=== PATIENT | male | born 1995 | race Caucasian/White ===

== ENCOUNTER 2021-08-21 18:53 | Inpatient (IN) | payer SELFPAY ==
[2021-08-21] VITALS (34 sets, daily range): BP systolic 80–127; BP diastolic 57–106; PULSE 87–110; RESP 15–44; TEMP 36.2–37.3; O2SAT 84–99; BMI 20.6; BMI 20.7
--- NOTE | ~2021-08-21 | CT_ITS ---
EXAMINATION: CT brain wo con INDICATION: Altered mental status COMPARISON: 06/17/2009 TECHNIQUE: Standard unenhanced head CT. The dose-length product (DLP) was 605.33 mGy-cm. The mA was a djusted according to patient size. Iterative reconstruction technique was employed. FINDINGS: There is no intracranial hemorrhage, acute infarction, or abnormal mass lesion. The ventric les are normal. There is no abnormal mass effect or midline shift. The gee-white matter differentiat ion is normal. The basal cisterns are patent. The orbits are normal. There is complete opacification of the left sphenoid sinus and near complete opacification of the right sphenoid sinus. IMPRESSION: 1. No acute intracranial abnormality. 2. Sinus disease. Reviewed, dictated and finalized at location F. ET WORKER
--- NOTE | ~2021-08-21 | XR_ITS ---
EXAMINATION: XR chest 2V DATE: 08/21/2021 20:28 INDICATION: Shortness of breath TECHNIQUE: PA and lateral views of the chest are obtained. COMPARISON: None available FINDINGS: There are patchy airspace opacities throughout the right lung. There is no pleural effusion or pneumothorax. The cardiomediastinal silhouette is normal. The visualized bones and soft tissues a re unremarkable. Mild pneumomediastinum is noted. IMPRESSION: 1. Diffuse airspace opacities of the right lung, consistent with pneumonia. 2. Mild pneumomediastinum, likely due to coughing. Reviewed, dictated and finalized at location F. DING AND SPRAYING SUPERVISOR
--- NOTE | ~2021-08-21 | XR_ITS ---
EXAMINATION: XR chest 1V portable DATE: 08/23/2021 05:52 INDICATION: Aspiration. Pneumomediastinum. TECHNIQUE: A single frontal view of the chest was obtained. COMPARISON: Chest single view 08/22/2021 FINDINGS: There are airspace opacities in all right lung zones and left perihilar region. No pleural effusion or pneumothorax. The heart size is normal. Again seen is pneumomediastinum. IMPRESSION: 1. Airspace opacities in right lung and left perihilar region with worsening on the left, consistent with pneumonia. 2. Pneumomediastinum again seen. Reviewed, dictated and finalized at location A. ANT PUFF MAKER
--- NOTE | ~2021-08-21 | XR_ITS ---
EXAMINATION: XR chest 1V portable DATE: 08/22/2021 07:49 INDICATION: Pneumomediastinum. Pneumonia. TECHNIQUE: A single frontal view of the chest was obtained. COMPARISON: Chest 2 views 08/21/2021, chest CT 08/21/2021 FINDINGS: There are airspace opacities in all right lung zones. No pleural effusion or pneumothorax. The heart size is normal. Pneumomediastinum and gas in the neck soft tissues are again seen. IMPRESSION: 1. Diffuse right lung disease with worsening in right midlung zone, consistent with pneumonia. 2. Pneumomediastinum again seen. Reviewed, dictated and finalized at location A. REPAIR MECHANIC
--- NOTE | ~2021-08-21 | XR_ITS ---
EXAMINATION: XR chest 2V DATE: 08/26/2021 09:34 INDICATION: Pneumonia. Pleural effusion. TECHNIQUE: PA and lateral views of the chest were obtained. COMPARISON: Chest radiograph dated 08/25/2021 FINDINGS: Interval decrease in the airspace opacities in the right mid and lower lung zones consistent with imp roving pneumonia. Left lung remains clear. No pleural effusion or pneumothorax. The cardiomediastinal silhouette is normal. Visualized bones and soft tissues are unremarkable. IMPRESSION: 1. Improving pneumonia in the right mid and upper lung zones Reviewed, dictated and finalized at location A. WEB DEVELOPER
--- NOTE | ~2021-08-21 | XR_ITS ---
EXAMINATION: XR chest 1V portable INDICATION: Aspiration pneumonia TECHNIQUE: Portable AP chest at 0734 hours COMPARISON: 08/23/2021 FINDINGS: Airspace opacities persist throughout the right lung with interval improvement. Previously described left perihilar opacities have also decreased. There is no pleural effusion or pneumothorax. No definite pneumomediastinum is identified. IMPRESSION: 1. Persistent but improved airspace opacities of the right lung and left perihilar region, consistent with resolving pneumonia. Reviewed, dictated and finalized at location A. RPLANT OPERATOR IMPRESSION: 1. Persistent but improved airspace opacities of the right lung and left perihi lar region, consistent with resolving pneumonia.
--- NOTE | ~2021-08-21 | CT_ITS ---
EXAMINATION: CTA chest PE protocol DATE: 08/21/2021 21:19 INDICATION: Pneumomediastinum, cough, shortness of breath TECHNIQUE: Computed tomography angiography (CTA) of the chest was performed with 100 mL Omnipaque-350 intravenous contrast timed to evaluate the pulmonary arteries. Coronal maximum intensity projection 3D-reconstructions were created by the technologist. The dose-length product (DLP) was 303.66 mGy-cm. Automated exposure control and iterative reconstruction technique were employed. COMPARISON: None. FINDINGS: The pulmonary arteries are moderately well-opacified. No pulmonary embolism is identified. There are diffuse airspace opacities throughout the right lung. Minimal airspace opacities are seen i n the left upper and lower lobes. There is pneumomediastinum tracking into the neck as well as anteri or chest wall musculature and paraspinal muscles. No pneumothorax is identified. No pathologically en larged thoracic lymph nodes are identified. The heart size is normal. IMPRESSION: 1. No pulmonary embolus identified. 2. Multifocal pneumonia, worst in the right lung. 3. Pneumomediastinum tracking into the neck, chest wall, and paraspinal muscles. Reviewed, dictated and finalized at location F. ESS COORDINATOR IMPRESSION: 1. No pulmonary embolus identified. 2. Multifocal pneumonia, worst in the right lung. 3. Pneumomediastinum tracking into the neck, chest wall, and paraspinal muscles .
--- NOTE | 2021-08-21 19:01 | ECG_ITS ---
Measurements Intervals [place] Rate: 90 P: 51 IA: 128 QRS: 82 QRSD: 84 T: 39 QT: 336 QTc: 412 Interpretive Statements SINUS RHYTHM BASELINE ARTIFACT- I, II, III, AVR NORMAL ECG Electronically Signed On 08-21-2021 20:30:04 GROUNDS KEEPER by Eben Tolentino D.O.
[2021-08-21 19:30] LABS: Hematocrit 45.4 % (42.0-52.0); Hemoglobin 15.6 g/dL (14.0-18.0); Mean Corpuscular HGB Conc 34.4 g/dl (32-36); Mean Corpuscular Hemoglobin 30.7 pg (26-34); Mean Corpuscular Volume 89.4 fl (80-100); Platelet Count Result 189 k/mm3 (150-375); Red Blood Count 5.08 M/mm3 (4.6-6.20); Red Cell Distribution Width 11.7 % (11.5-14.5); White Blood Count 27.4 K/mm3 (4.5-10.0)
[2021-08-21 19:34] LABS: Add Urine Microscopic? NO; Appearance Urine Clear (Clear); Bilirubin Urine Negative (Negative); Blood Urine Negative (Negative); Color Urine Straw (Yellow); Glucose Urine UA Negative (Negative); Ketones Urine Negative (Negative); Leukocyte Esterase Ur Negative LEU/UL (Negative); Nitrate Urine Negative (Negative); Protein Urine Negative (Negative); Specific Grav Ur 1.013 (1.001-1.035); Urobilinogen Urine Negative mg/dL (<2.0)
[2021-08-21 19:40] LABS: INR 1.6; Prothrombin Time 18.2 Seconds (11.1-14.7)
[2021-08-21 19:41] LABS: Partial Thromboplastin Time 30.5 SECONDS (22.3-36.8)
[2021-08-21 19:49] LABS: Amphetamine Screen Urine Negative (Negative); Barbiturate Screen Urine Negative (Negative); Benzodiazepines Screen Urine Negative (Negative); Cannabinoid Screen Urine Positive (Negative); Cocaine Screen Urine Negative (Negative); Methadone Screen Urine Negative (Negative); Opiate Screen Urine Negative (Negative); Phencyclidine Screen Urine Negative (Negative)
--- NOTE | 2021-08-21 19:51 | ED.GENADULT ---
HPI - General Adult General Chief complaint: Altered Mental Status Stated complaint: vomiting blood/dizzy/altered loc Time Seen by Provider: 08/21/21 18:57 History of Present Illness HPI narrative: Patient is a 25-year-old male who presents ER with multiple issues. Patient reports last night he took some drugs and he is unsure if he overdosed. He thought he might of taken Percocet but is unsure what was actually in the pill. Apparently he disappeared from the house and came back unbeknownst to his mother. Patient woke up this morning confused with no memory of the events from last night. He spoke with the therapist on the phone because he has been depressed due to a recent break-up. Throughout the day he has been having recurrent and persistent vomiting and dry heaves. Occasionally he is vomited up gross blood and emesis with streaks of blood. Denies any runny nose or sore throat. No productive cough or dyspnea. He reports that he just feels nauseous. He reports he did not take the pills in an attempt to end his own life. He has depression but no suicidal ideation. Related Data Home Medications Medication Instructions Recorded Confirmed No Home Medications 08/21/21 08/21/21 Allergies Allergy/AdvReac Type Severity Reaction Status Date / Time No Known Allergies Allergy Mild Verified 08/21/21 19:00 Review of Systems Review of Systems: All systems reviewed & are unremarkable except as noted in HPI and below Constitutional: Constitutional: Denies chills, Reports fatigue, Denies fever(s) and Denies weakness ENT: Denies nasal congestion and Denies sore throat Cardiovascular: Cardiovascular: Denies chest pain, Denies rapid heart rate and Denies radiating jaw, neck or arm pain Respiratory: Respiratory: Denies cough, Denies dyspnea and Denies wheezing Gastrointestinal: Gastrointestinal: Reports abdominal pain, Denies diarrhea, Reports nausea and Reports vomiting Neurologic: Denies headache(s), Denies focal weakness and Denies numbness PMFSH Past Medical History Medical History (Updated 08/21/21 @ 23:02 by Kai Odell MD) Healthy adult male Social History Social History (Updated 08/21/21 @ 21:00 by Kai Odell MD) Substance use type: marijuana and painkillers Exam Narrative: GENERAL: Well-appearing, well-nourished, and in no acute distress. HEAD: Normocephalic, atraumatic. EYES: PERRL and EOMI. ENT: Mucous membranes moist. Neck: Trachea midline, no palpable crepitus. CHEST: Clear to auscultation. No respiratory distress. Cough with deep breath. HEART: Regular rate and rhythm. Normal peripheral pulses. ABDOMEN: Soft, nontender, nondistended EXTREMITIES: Normal range of motion. No edema. SKIN: Warm, dry, no rash. NEURO: Alert and oriented x3. PSYCH: Normal mood and affect. Course Course Emergency Course: After ambulation to the bathroom patient had significant hypoxia into the 80s and is requiring 2 L of oxygen. Gastric lavage was performed and ruled out upper GI bleed. NG tube removed. Pneumomediastinum and pneumonia on imaging. Acute renal failure noted. Blood cultures obtained and Zosyn started. No bed availability at [facility] or [facility] and they're not accepting phone calls. Admit to hospitalist service. Patient clinically looks well but certainly has concerning his imaging and lab findings. Vital Signs Vital signs: Vital Signs Temperature 97.2 F L 08/21/21 19:01 Pulse Rate 88 08/21/21 19:01 Respiratory Rate 22 H 08/21/21 19:01 Blood Pressure 103/57 L 08/21/21 19:01 Pulse Oximetry 94 08/21/21 19:01 Temperature 97.2 F L 08/21/21 19:01 Pulse Rate 89 08/21/21 22:47 Respiratory Rate 37 H 08/21/21 22:45 Blood Pressure 105/57 L 08/21/21 22:45 Pulse Oximetry 96 08/21/21 22:47 Medical Decision Making Vital Signs Vital Signs: Vital Signs Temperature 97.2 F L 08/21/21 19:01 Pulse Rate 88 08/21/21 19:01 Respiratory Rate 22 H 0
[2021-08-21 19:57] LABS: Alanine Aminotransferase 71 U/L (4-50); Albumin Level 3.9 g/dL (3.5-5.1); Alkaline Phosphatase 60 U/L (38-126); Anion Gap 15 mmol/L (8-16); Aspartate Amino Transferase 75 U/L (17-59); Bilirubin,Total 0.6 mg/dL (0.2-1.3); Blood Urea Nitrogen 29 mg/dL (9-20); Calcium 8.4 mg/dL (8.4-10.2); Carbon Dioxide 22 mmol/L (22-30); Chloride 101 mmol/L (98-107); Estimated CRCL calculation 47 ml/min; Estimated Glomerular Filt Rate 41; Glucose 111 mg/dL (65-110); Potassium 4.3 mmol/L (3.4-5.0); Sodium 138 mmol/L (137-145)
[2021-08-21 19:58] LABS: Band Neutrophils Percent 17 % (0-6); Lymphocytes Absolute Manual 1.91 K/mm3 (1.1-4.5); Lymphocytes Percent Manual 7 % (18-44); Monocytes Absolute Manual 0.54 K/mm3 (0.1-0.90); Monocytes Percent Manual 2 % (3-9); Neutrophils Absolute Manual 24.93 K/mm3 (1.3-6.7); Neutrophils Percent Manual 74 % (46-73); Total Cells Counted 100
[2021-08-21 19:59] LABS: Platelet Estimate Adequate (Adequate)
--- NOTE | 2021-08-21 20:03 | PC.NURSE ---
no blood noted during gastric lavage
[2021-08-21 20:05] LABS: Acetaminophen < 10 ug/mL (10-30); Salicylate < 1.0 mg/dL (2-20)
[2021-08-21] MEDS: SODIUM CHLORIDE 0.9% IV 1,000 ML 999 ML IV CONT ×2 (20:35→21:32)
[2021-08-21 21:40] LABS: SARS-CoV-2 RNA PCR Negative
[2021-08-21 22:30] LABS: Alveolar/Arterial O2 Gradient 87.8 mmHg; Base Excess ABG -3.2 mEq/l (+/-2.0); Carboxyhemoglobin 0.3 % THb (0-2.0); Fractional Inspired Oxygen 28 %; HCO3 ABG 21.1 mEq/l (22.0-26.0); Methemoglobin ABG 0.3 %THb (0-1.5); Oxygen Content ABG 18.5 %vol (16.0-22.0); Oxygen Saturation ABG 93.9 % (95.0-100.0); Oxyhemoglobin 92.7 % THb (90.0-100.0); PCO2 ABG 35.8 mmHg (35.0-45.0); PO2 ABG 69.6 mmHg (80.0-100.0); PO2 FiO2 Ratio Arterial Blood 2.49 %; Reduced Hemoglobin 6.7 %THb (0-5.0); Total Hemoglobin 14.2 g/dL (12.0-18.0); pH ABG 7.388 (7.350-7.450)
[2021-08-21 22:32] LABS: Device NASAL CANNULA; Modified Allen's Test Pass; Site Drawn LEFT RADIAL
--- NOTE | 2021-08-21 23:06 | PC.NURSE ---
[facility] faxed at [phone].
--- NOTE | 2021-08-21 23:53 | PM.IMHP ---
H&P: HPI History of Present Illness Date/Time: 08/21/21 23:53 Chief Complaint: Coughing up blood, altered mental status Narrative: 25-year-old previously healthy male who was escorted to the ER by his mother via private vehicle after having altered mental status and coughing up blood. The patient had evidently left his home last night and came back IV notes to his mother. He was evidently out of the house for about 20 minutes. In the ER he admitted to taking some drugs that he thought was Percocet but at the time of my evaluation he actually stated he did not recall if he took any pills. He stated that he did not take the medications in an effort to overdose but does admit that he has been depressed the last couple of months after break-up with his girlfriend. He evidently woke up this morning confused. He evidently had recurrent vomiting and dry heaves with some blood-tinged material. The patient himself does not actually remember the nausea and vomiting. He denies any abdominal pain at this time and has had no vomiting since he arrived to the ER. He did report some nausea to the ER staff but denies nausea at the time of my evaluation. He does admit to some mild shortness of breath that is new today. He has a mild cough that is worse with deep breathing. He does report some lower rib and back pain with deep breathing. He had no recall of the events from the night before. He has been vaccinated against COVID-19. He denies any known ill contacts. He denies any suicidal or homicidal ideation. He denies any intent to hurt himself. He has been talking with a counselor on the phone due to his depressive symptoms. He reports that his depression is mild. He has used E cigarettes for 3 years. He smokes 3 marijuana joints a day. Review of Systems Review of Systems: 12 systems were reviewed with pertinent positives and negatives per HPI. Except as documented in the HPI, all other systems were reviewed and are negative. FOR[facility]LY [facility], [facility] Past Medical History Medical History (Updated 08/22/21 @ 03:20 by Denise Roblero DO) Healthy adult male Surgical History Surgical History (Updated 08/22/21 @ 03:08 by Denise Roblero DO) History of appendectomy History of left inguinal hernia repair At age 10 Family History Family History Other No significant family history Social History Social History (Updated 08/22/21 @ 03:11 by Denise Roblero DO) Social History: Patient is single and lives with his parents. He works at [employer] in the [employer] department. He drinks alcohol on occasion in in moderation about once a month. He smokes 3 joints a day. He has been smoking E cigarettes for 3 years. Tobacco type: e-cigarettes/vaping Additional smoking assessment comments: He has been vaping since 2019 Alcohol intake: current Drinks per week: 1 Substance use: current Substance use type: marijuana Spiritual care concerns: No Meds Home Medications and Allergies Home Medications Medication Instructions Recorded Confirmed Type No Home Medications 08/21/21 08/21/21 History Allergies Allergy/AdvReac Type Severity Reaction Status Date / Time No Known Allergies Allergy Verified 08/22/21 01:45 Vital Signs Vital Signs - 24 hr 08/21/21 19:01 08/21/21 19:03 08/21/21 19:15 Temperature 97.2 F L Pulse Rate 88 95 89 Respiratory Rate 22 H 32 H 42 H Blood Pressure 103/57 L 80/58 L Pulse Oximetry 94 92 92 08/21/21 19:22 08/21/21 19:23 08/21/21 19:30 Temperature Pulse Rate 92 106 H 89 Respiratory Rate 38 H 28 H 18 Blood Pressure 105/75 101/67 Pulse Oximetry 91 92 91 08/21/21 19:31 08/21/21 19:47 08/21/21 20:08 Temperature Pulse Rate 89 93 92 Respiratory Rate 42 H 38 H 28 H Blood Pressure Pulse Oximetry 90 93 08/21/21 20:15 08/21/21 20:16 08/21/21 20:18 Temperature Pulse Rate 92 94 87 Respiratory Rat
[2021-08-22] VITALS (12 sets, daily range): BP systolic 104–122; BP diastolic 50–59; PULSE 71–100; RESP 16–20; TEMP 36.6–37.7; O2SAT 95–98
[2021-08-22] MEDS: SODIUM CHLORIDE 0.9% IV 1,000 ML 125 ML IV CONT ×2 (00:27→10:13)
--- NOTE | 2021-08-22 01:01 | PC.NURSE ---
This patient, Jeff Lobo, was admitted to IMU Room 201-01. Patient/family oriented to hospital policies and general routines including ID bracelet, bed and alarms, visiting hours, pain management, procedures, bathroom and other care routines, personal items, smoking policy, room service/diet, and visiting hours. Information on how to activate the Rapid Response Team has been discussed. Patient/Family are encouraged to report perceived risks to care and to ask questions if they do not understand what they are told or what they should do.
[2021-08-22 05:19] LABS: Hematocrit 38.1 % (42.0-52.0); Hemoglobin 13.2 g/dL (14.0-18.0); Mean Corpuscular HGB Conc 34.6 g/dl (32-36); Mean Corpuscular Hemoglobin 31.1 pg (26-34); Mean Corpuscular Volume 89.6 fl (80-100); Mean Platelet Volume 11.5 fl (7.4-10.4); Platelet Count Result 156 k/mm3 (150-375); Red Blood Count 4.25 M/mm3 (4.6-6.20); White Blood Count 28.1 K/mm3 (4.5-10.0)
[2021-08-22 05:42] LABS: Alanine Aminotransferase 49 U/L (4-50); Albumin Level 3.2 g/dL (3.5-5.1); Alkaline Phosphatase 58 U/L (38-126); Anion Gap 10 mmol/L (8-16); Aspartate Amino Transferase 45 U/L (17-59); Bilirubin,Total 0.8 mg/dL (0.2-1.3); Blood Urea Nitrogen 21 mg/dL (9-20); Calcium 8.3 mg/dL (8.4-10.2); Carbon Dioxide 24 mmol/L (22-30); Chloride 104 mmol/L (98-107); Estimated CRCL calculation 64 ml/min; Estimated Glomerular Filt Rate > 60; Glucose 91 mg/dL (65-110); Potassium 4.2 mmol/L (3.4-5.0); Sodium 138 mmol/L (137-145)
[2021-08-22 06:15] LABS: Atypical Lymphocytes Present; Band Neutrophils Percent 28 % (0-6); Monocytes Absolute Manual 2.52 K/mm3 (0.1-0.90); Monocytes Percent Manual 9 % (3-9); Neutrophils Absolute Manual 24.16 K/mm3 (1.3-6.7); Neutrophils Percent Manual 58 % (46-73); Platelet Estimate Adequate (Adequate); Total Cells Counted 100
--- NOTE | 2021-08-22 10:44 | PM.IMPN ---
Progress Note: A&P Assessment and Plan (1) Aspiration pneumonia: Qualifiers: Aspiration pneumonia type: due to vomit Laterality: bilateral Lung location: unspecified part of lung Qualified Code(s): J69.0 - Pneumonitis due to inhalation of food and vomit Code(s): J69.0 - Pneumonitis due to inhalation of food and vomit Status: Acute (2) Sepsis with acute hypoxic respiratory failure: Qualifiers: Sepsis type: sepsis due to unspecified organism Severe sepsis shock status: without septic shock Qualified Code(s): A41.9 - Sepsis, unspecified organism; R65.20 - Severe sepsis without septic shock; J96.01 - Acute respiratory failure with hypoxia Code(s): A41.9 - Sepsis, unspecified organism; R65.20 - Severe sepsis without septic shock; J96.01 - Acute respiratory failure with hypoxia Status: Acute (3) Pneumomediastinum: Code(s): J98.2 - Interstitial emphysema Status: Acute (4) CORY (acute kidney injury): Code(s): N17.9 - Acute kidney failure, unspecified Status: Acute (5) Ingestion of unknown drug: Code(s): T50.901A - Poisoning by unspecified drugs, medicaments and biological substances, accidental (unintentional), initial encounter Status: Acute Additional Plan Patient has sepsis due to aspiration pneumonia resulting in acute hypoxic respiratory failure and acute kidney injury. Patient been placed on empiric antibiotic therapy with vancomycin and Zosyn. Blood cultures have been obtained and are pending. The patient received 2 L in isotonic fluid resuscitation and has been placed on maintenance fluids at 125 mL an hour. Will continue to monitor urine output and repeat electrolyte panel in a.m.. Patient also has some transaminitis again likely secondary to acute sepsis. Patient does have some pneumomediastinum likely due to coughing. Will repeat chest x-ray in a.m. to monitor. The patient can stand and ambulate for DVT prophylaxis. Will not provide pharmacologic DVT prophylaxis due to report of hematemesis versus hemoptysis. Patient has been admitted as inpatient status and will require greater than 2 midnight stay for stabilization of severe sepsis with end-organ injury. 08/22/21 Cr improving 2.00-> 1.40 (GFR > 60 today) AST/ALT normalized utox w marijuana unclear what pills pt consumed prior to aspiration event cont vanc zosyn cont IVFs will slow rate to 100cc /hr monitor pneumomediastinum crisis eval prior to dc Subjective Date/time seen: 08/22/21 10:44 pt reports chest pain and cough unable to take deep breaths, review of events surrounding his reason for admission remains unclear. Spoke with his mother via [employer]. She was very concerned for her son's mental state after his breakup w Tadeo, his girlfriend, 2 weeks ago. Today would have been their one yr anniversary. Crisis evaluation does seem reasonable to Jeff's parents since he is so out of his usual character. Drug screen was negative except for marijuana. Unclear what or how much he consumed. He reports that he was trying to get high . Seems highly suspicious. Case reviewed w printing services coordinator who will call crisis after pt medically cleared. Mother did report that because her son was reporting feeling very depressed after breakup from girlfriend they did contact a counselor. Jeff was speaking with this person via phone. When he did not report yesterday the counselor called and alerted his parents who found him altered and vomiting blood. So they sought medical attention for their son. Exam Narrative: General: No acute distress, well-developed well-nourished HEENT: Mucous membranes are moist, EOMI, both ears pierced Respiratory: cough w inspiration, crackles at the bases in the right middle lung ordoñez, pleuritic chest pain Cardiovascular: S1S2 Gastrointestinal: Soft, nontender, nondistended Skin: No jaundice, positive pallor, normal cap refill Musculoskeletal: No clubbin
[2021-08-22] MEDS: SODIUM CHLORIDE 0.9% IV 1,000 ML 100 ML IV CONT (20:27)
[2021-08-23] VITALS (8 sets, daily range): BP systolic 105–122; BP diastolic 53–76; PULSE 67–88; RESP 16–20; TEMP 36.6–37.1; O2SAT 94–98
[2021-08-23 05:15] LABS: Hematocrit 37.6 % (42.0-52.0); Hemoglobin 12.8 g/dL (14.0-18.0); Mean Platelet Volume 11.5 fl (7.4-10.4); Platelet Count Result 144 k/mm3 (150-375); Red Blood Count 4.13 M/mm3 (4.6-6.20); White Blood Count 21.8 K/mm3 (4.5-10.0)
[2021-08-23 05:38] LABS: Anion Gap 6 mmol/L (8-16); Blood Urea Nitrogen 14 mg/dL (9-20); Calcium 8.1 mg/dL (8.4-10.2); Carbon Dioxide 23 mmol/L (22-30); Chloride 106 mmol/L (98-107); Estimated CRCL calculation 74 ml/min; Estimated Glomerular Filt Rate > 60; Glucose 106 mg/dL (65-110); Potassium 3.9 mmol/L (3.4-5.0); Sodium 135 mmol/L (137-145)
[2021-08-23 06:33] LABS: Band Neutrophils Percent 10 % (0-6); Lymphocytes Absolute Manual 1.52 K/mm3 (1.1-4.5); Neutrophils Absolute Manual 20.27 K/mm3 (1.3-6.7); Neutrophils Percent Manual 83 % (46-73); Platelet Estimate Adequate (Adequate); Total Cells Counted 100
[2021-08-23] MEDS: SODIUM CHLORIDE 0.9% IV 1,000 ML 100 ML IV CONT ×2 (08:32→17:25)
--- NOTE | 2021-08-23 12:03 | PC.NURSE ---
This patient, Jeff Lobo, was transferred to [[id number] ] on 08/23/21 at 1203. Personal belongings sent with patient. Report given to [NEL Mccarty @ 1200 ]. Appropriate documentation sent with patient.
--- NOTE | 2021-08-23 13:03 | PC.NURSE ---
This patient, Jeff Lobo, was transferred to [facility] Surg Room 327-01. Patient/family oriented to hospital policies and general routines including ID bracelet, bed and alarms, visiting hours, pain management, procedures, bathroom and other care routines, personal items, smoking policy, room service/diet, and visiting hours. Information on how to activate the Rapid Response Team has been discussed. Patient/Family are encouraged to report perceived risks to care and to ask questions if they do not understand what they are told or what they should do. Mother at bedside.
--- NOTE | 2021-08-23 13:10 | PM.IMPN ---
Progress Note: A&P Assessment and Plan (1) Aspiration pneumonia: Qualifiers: Aspiration pneumonia type: due to vomit Laterality: bilateral Lung location: unspecified part of lung Qualified Code(s): J69.0 - Pneumonitis due to inhalation of food and vomit Code(s): J69.0 - Pneumonitis due to inhalation of food and vomit Status: Acute (2) Sepsis with acute hypoxic respiratory failure: Qualifiers: Sepsis type: sepsis due to unspecified organism Severe sepsis shock status: without septic shock Qualified Code(s): A41.9 - Sepsis, unspecified organism; R65.20 - Severe sepsis without septic shock; J96.01 - Acute respiratory failure with hypoxia Code(s): A41.9 - Sepsis, unspecified organism; R65.20 - Severe sepsis without septic shock; J96.01 - Acute respiratory failure with hypoxia Status: Acute (3) Pneumomediastinum: Code(s): J98.2 - Interstitial emphysema Status: Acute (4) CORY (acute kidney injury): Code(s): N17.9 - Acute kidney failure, unspecified Status: Acute (5) Ingestion of unknown drug: Code(s): T50.901A - Poisoning by unspecified drugs, medicaments and biological substances, accidental (unintentional), initial encounter Status: Acute Additional Plan Patient has sepsis due to aspiration pneumonia resulting in acute hypoxic respiratory failure and acute kidney injury. Patient been placed on empiric antibiotic therapy with vancomycin and Zosyn. Blood cultures have been obtained and are pending. The patient received 2 L in isotonic fluid resuscitation and has been placed on maintenance fluids at 125 mL an hour. Will continue to monitor urine output and repeat electrolyte panel in a.m.. Patient also has some transaminitis again likely secondary to acute sepsis. Patient does have some pneumomediastinum likely due to coughing. Will repeat chest x-ray in a.m. to monitor. The patient can stand and ambulate for DVT prophylaxis. Will not provide pharmacologic DVT prophylaxis due to report of hematemesis versus hemoptysis. Patient has been admitted as inpatient status and will require greater than 2 midnight stay for stabilization of severe sepsis with end-organ injury. 08/22/21 Cr improving 2.00-> 1.40 (GFR > 60 today) AST/ALT normalized utox w marijuana unclear what pills pt consumed prior to aspiration event cont vanc zosyn cont IVFs will slow rate to 100cc /hr monitor pneumomediastinum crisis eval prior to dc 08/23/2021 Slow improvement continue current care Subjective Date/time seen: 08/23/21 13:10 Interval history: 25-year-old previously healthy male who was escorted to the ER by his mother via private vehicle after having altered mental status and coughing up blood. The patient had evidently left his home last night and came back IV notes to his mother. He was evidently out of the house for about 20 minutes. In the ER he admitted to taking some drugs that he thought was Percocet but at the time of my evaluation he actually stated he did not recall if he took any pill. Pt admitted with aspiration pneumonia slowly improving. Review of Systems Review of Systems: All systems reviewed & are unremarkable except as noted in HPI and below Exam Narrative: General: No acute distress, well-developed well-nourished HEENT: Mucous membranes are moist, EOMI, both ears pierced Respiratory: BL crackles Cardiovascular: S1S2 Gastrointestinal: Soft, nontender, nondistended Skin: No jaundice, positive pallor, normal cap refill Musculoskeletal: No clubbing, cyanosis or edema Neurological: Alert and oriented, speech is clear, no facial asymmetry, no focal neuro deficits Psychiatric: h/o of depression Objective Data Vital Signs Vital Signs: Vital Signs - 24 hr 08/22/21 14:00 08/22/21 16:00 08/22/21 18:00 Temperature 37.7 C H Pulse Rate 81 85 89 Respiratory Rate 16 Blood Pressure 122/53 L Pulse Oximetry 97
--- NOTE | 2021-08-23 16:49 | PC.NURSE ---
On 08/23/21, the student, [Siomara Marc ], provided care and completed [facility] documentation on this patient. I have reviewed the student's documentation and agree with the findings.
[2021-08-23] MEDS: SODIUM CHLORIDE 0.9% IV 1,000 ML 50 ML IV CONT (20:21)
[2021-08-24] VITALS (10 sets, daily range): BP systolic 111–127; BP diastolic 59–67; PULSE 64–80; RESP 16–18; TEMP 37–37.6; O2SAT 90–98
[2021-08-24] MEDS: ACETAMINOPHEN 325 MG TABLET 650 MG PO (00:58)
[2021-08-24 08:16] LABS: Hematocrit 41.4 % (42.0-52.0); Hemoglobin 13.8 g/dL (14.0-18.0); Mean Corpuscular HGB Conc 33.3 g/dl (32-36); Mean Corpuscular Hemoglobin 30.8 pg (26-34); Mean Corpuscular Volume 92.4 fl (80-100); Platelet Count Result 172 k/mm3 (150-375); Red Blood Count 4.48 M/mm3 (4.6-6.20); White Blood Count 12.6 K/mm3 (4.5-10.0)
[2021-08-24 08:25] LABS: Anion Gap 10 mmol/L (8-16); Blood Urea Nitrogen 12 mg/dL (9-20); Calcium 8.6 mg/dL (8.4-10.2); Carbon Dioxide 25 mmol/L (22-30); Chloride 104 mmol/L (98-107); Estimated CRCL calculation 83 ml/min; Estimated Glomerular Filt Rate > 60; Glucose 93 mg/dL (65-110); Potassium 3.8 mmol/L (3.4-5.0); Sodium 139 mmol/L (137-145)
--- NOTE | 2021-08-24 10:38 | PM.CNPUL ---
Assessment and Plan Assessment and plan (1) Sepsis with acute hypoxic respiratory failure: Qualifiers: Sepsis type: sepsis due to unspecified organism Severe sepsis shock status: without septic shock Qualified Code(s): A41.9 - Sepsis, unspecified organism; R65.20 - Severe sepsis without septic shock; J96.01 - Acute respiratory failure with hypoxia Code(s): A41.9 - Sepsis, unspecified organism; R65.20 - Severe sepsis without septic shock; J96.01 - Acute respiratory failure with hypoxia Status: Acute (2) Aspiration pneumonia: Qualifiers: Aspiration pneumonia type: due to vomit Laterality: bilateral Lung location: unspecified part of lung Qualified Code(s): J69.0 - Pneumonitis due to inhalation of food and vomit Code(s): J69.0 - Pneumonitis due to inhalation of food and vomit Status: Acute Assessment and Plan: This 25-year-old man presented with altered mental status changes, tachypnea, acute renal insufficiency leukocytosis hemoptysis and extensive right lung infiltrate most likely related to aspiration pneumonia. On admission to the hospital patient had evidence of sepsis with altered mental status changes tachypnea and organ dysfunction. Clinical condition has significantly improved over the last 3 days. His white cell count has decreased and his creatinine and elevated transaminases are back into the normal range. He continues to have mild cough with blood tinged sputum. The pneumomediastinum appears stable on recent chest imaging studies. Plan is as follows: I would continue with same treatment. Repeat PT. Consider SCDs for DVT prophylaxis. If PT is normal I will start patient on heparin subQ for DVT prophylaxis. The case was discussed with the hospitalist (3) Pneumomediastinum: Code(s): J98.2 - Interstitial emphysema Status: Acute (4) CORY (acute kidney injury): Code(s): N17.9 - Acute kidney failure, unspecified Status: Acute (5) Elevated liver transaminase level: Code(s): R74.01 - Elevation of levels of liver transaminase levels Status: Acute (6) Ingestion of unknown drug: Code(s): T50.901A - Poisoning by unspecified drugs, medicaments and biological substances, accidental (unintentional), initial encounter Status: Acute History of Present Illness History of Present Illness Consult date: 08/24/21 Chief complaint: Aspiration Pneumonia,Pneumomediastinum,Hypoxia Narrative: this 25-year-old man was admitted into the hospital 3 days ago with 1 day history of hemoptysis and altered mental status. The patient is a poor historian. Reportedly he went out and spent time with his friends. He stated that he took some pills to get high because he was depressed. He could not remember what kind of pills he took. Upon questioning he could not tell whether he had inhaled cocaine as well. He was brought into the emergency room after he woke up at home confused. There was reportedly vomiting and dry heaves. He denied having chest pain abdominal pain fever chills. Currently he is doing better. He continues to cough up a less blood than before. He stated that he has coughed up mucus mixed with blood, 70/30 % ratio. Hemoptysis has significantly improved over the last day. Initial chest CT showed extensive right lung infiltrate. There was also small pneumomediastinum. He has been on Zosyn and vancomycin for aspiration pneumonia with significant decrease in his white cell count. he also had elevated creatinine which is now back into the normal range. His PT was prolonged on admission. Review of Systems Review of Systems: All systems reviewed & are unremarkable except as noted in HPI and below PMFSH Past Medical History Medical History (Updated 08/22/21 @ 11:17 by Camryn Navas MD) Healthy adult male Surgical History Surgical History (Updated 08/22/21 @ 03:08 by Denise Roblero DO) History of appendectomy History
--- NOTE | 2021-08-24 13:36 | PM.IMPN ---
Progress Note: A&P Assessment and Plan (1) Aspiration pneumonia: Qualifiers: Aspiration pneumonia type: due to vomit Laterality: bilateral Lung location: unspecified part of lung Qualified Code(s): J69.0 - Pneumonitis due to inhalation of food and vomit Code(s): J69.0 - Pneumonitis due to inhalation of food and vomit Status: Acute (2) Sepsis with acute hypoxic respiratory failure: Qualifiers: Sepsis type: sepsis due to unspecified organism Severe sepsis shock status: without septic shock Qualified Code(s): A41.9 - Sepsis, unspecified organism; R65.20 - Severe sepsis without septic shock; J96.01 - Acute respiratory failure with hypoxia Code(s): A41.9 - Sepsis, unspecified organism; R65.20 - Severe sepsis without septic shock; J96.01 - Acute respiratory failure with hypoxia Status: Acute (3) Pneumomediastinum: Code(s): J98.2 - Interstitial emphysema Status: Acute (4) CORY (acute kidney injury): Code(s): N17.9 - Acute kidney failure, unspecified Status: Acute (5) Ingestion of unknown drug: Code(s): T50.901A - Poisoning by unspecified drugs, medicaments and biological substances, accidental (unintentional), initial encounter Status: Acute Additional Plan Patient has sepsis due to aspiration pneumonia resulting in acute hypoxic respiratory failure and acute kidney injury. Patient been placed on empiric antibiotic therapy with vancomycin and Zosyn. Blood cultures have been obtained and are pending. The patient received 2 L in isotonic fluid resuscitation and has been placed on maintenance fluids at 125 mL an hour. Will continue to monitor urine output and repeat electrolyte panel in a.m.. Patient also has some transaminitis again likely secondary to acute sepsis. Patient does have some pneumomediastinum likely due to coughing. Will repeat chest x-ray in a.m. to monitor. The patient can stand and ambulate for DVT prophylaxis. Will not provide pharmacologic DVT prophylaxis due to report of hematemesis versus hemoptysis. Patient has been admitted as inpatient status and will require greater than 2 midnight stay for stabilization of severe sepsis with end-organ injury. 08/22/21 Cr improving 2.00-> 1.40 (GFR > 60 today) AST/ALT normalized utox w marijuana unclear what pills pt consumed prior to aspiration event cont vanc zosyn cont IVFs will slow rate to 100cc /hr monitor pneumomediastinum crisis eval prior to dc 08/23/2021 Slow improvement continue current care 08/24/2021 CXr ordered for samir AM Pulmology consult ordered Continue current iv abx Wcc improving , bc full report awaiting. Rpt BMp and INR PT can stop fluids creat is better Subjective Date/time seen: 08/24/21 13:36 Interval history: 25-year-old previously healthy male who was escorted to the ER by his mother via private vehicle after having altered mental status and coughing up blood. The patient had evidently left his home last night and came back IV notes to his mother. He was evidently out of the house for about 20 minutes. In the ER he admitted to taking some drugs that he thought was Percocet but at the time of my evaluation he actually stated he did not recall if he took any pill. Pt admitted with aspiration pneumonia slowly improving with iv Abx. Review of Systems Review of Systems: All systems reviewed & are unremarkable except as noted in HPI and below Exam Narrative: General: No acute distress, well-developed well-nourished HEENT: Mucous membranes are moist, EOMI, both ears pierced Respiratory: BL decreased BS Cardiovascular: S1S2 Gastrointestinal: Soft, nontender, nondistended Skin: No jaundice, positive pallor, normal cap refill Musculoskeletal: No clubbing, cyanosis or edema Neurological: Alert and oriented, speech is clear, no facial asymmetry, no focal neuro deficits Psychiatric: h/o of depression Objective Data Vital Si
[2021-08-25 06:00] VITALS: BP 100/56; PULSE 62; RESP 14; TEMP 36.7; O2SAT 98
[2021-08-25 08:00] VITALS: O2SAT 99
[2021-08-25 08:21] LABS: Anion Gap 7 mmol/L (8-16); Blood Urea Nitrogen 11 mg/dL (9-20); Calcium 8.6 mg/dL (8.4-10.2); Carbon Dioxide 26 mmol/L (22-30); Chloride 106 mmol/L (98-107); Estimated CRCL calculation 76 ml/min; Estimated Glomerular Filt Rate > 60; Glucose 98 mg/dL (65-110); Potassium 3.5 mmol/L (3.4-5.0); Sodium 139 mmol/L (137-145)
--- NOTE | 2021-08-25 08:41 | PM.PNPUL ---
Progress Note: A&P Assessment and Plan (1) Sepsis with acute hypoxic respiratory failure: Qualifiers: Sepsis type: sepsis due to unspecified organism Severe sepsis shock status: without septic shock Qualified Code(s): A41.9 - Sepsis, unspecified organism; R65.20 - Severe sepsis without septic shock; J96.01 - Acute respiratory failure with hypoxia Code(s): A41.9 - Sepsis, unspecified organism; R65.20 - Severe sepsis without septic shock; J96.01 - Acute respiratory failure with hypoxia Status: Acute (2) Aspiration pneumonia: Qualifiers: Aspiration pneumonia type: due to vomit Laterality: bilateral Lung location: unspecified part of lung Qualified Code(s): J69.0 - Pneumonitis due to inhalation of food and vomit Code(s): J69.0 - Pneumonitis due to inhalation of food and vomit Status: Acute Assessment and Plan: respiratory status has improved. Patient no longer has hemoptysis. O2 saturation also improved. Chest x-ray probably unchanged over the last 24 hours. Await lab tests. Consider starting patient on DVT prophylaxis if PT is within normal range. Continue with same antibiotic. Repeat chest x-ray in a.m.. (3) Pneumomediastinum: Code(s): J98.2 - Interstitial emphysema Status: Acute (4) Ingestion of unknown drug: Code(s): T50.901A - Poisoning by unspecified drugs, medicaments and biological substances, accidental (unintentional), initial encounter Status: Acute Subjective Date/time seen: 08/25/21 08:41 Patient stated that his breathing has improved. Coughing also a lot less. No hemoptysis today. Has had some night sweats. Has not been using oxygen all the time. Review of Systems Review of Systems: All systems reviewed & are unremarkable except as noted in HPI and below Exam Narrative: GENERAL APPEARANCE: Well developed, well nourished, alert and cooperative, and appears to be in no acute distress while on supplemental oxygen SKIN: Inspection of the skin reveals no rashes, ulcerations or petechiae. HEENT: Sclerae anicteric and conjunctivae pink and moist. Extraocular movements were intact and pupils were equal, round, and reactive to light. The oral mucosa, hard and soft palate, tongue and posterior pharynx were normal. NECK: Supple. There was no thyroid enlargement, and no tenderness, or masses were felt. CHEST: Normal AP diameter and normal contour without any kyphoscoliosis. LUNGS: Auscultation of the lungs revealed few crackles right lung posteriorly. CARDIAC: There was a regular rate and rhythm without any murmurs, gallops, rubs. ABDOMEN: Soft and nontender with normal bowel sounds. There was no organomegaly. LYMPH NODES: No lymphadenopathy was appreciated in the neck. EXTREMITIES: No cyanosis, clubbing or edema. NEUROLOGIC: Alert and oriented x 3. Normal affect. Objective Data Vital Signs Vital Signs: Vital Signs - 24 hr 08/24/21 15:50 08/24/21 16:55 08/24/21 16:56 Temperature Pulse Rate Respiratory Rate Blood Pressure Pulse Oximetry 96 90 94 08/24/21 20:00 08/24/21 22:00 08/25/21 06:00 Temperature 37.0 C 36.7 C Pulse Rate 64 62 Respiratory Rate 18 14 Blood Pressure 122/67 100/56 L Pulse Oximetry 91 91 98 Intake/Output Intake/Output: Intake & Output 08/22/21 08/23/21 08/24/21 08/25/21 23:59 23:59 23:59 23:59 Intake Total 4940.0 4555 2400 350 Output Total 5600 1550 1200 500 Balance -660.0 3005 1200 -150 Meds/Results Medications: Active Medications Generic Name Dose Route Start Last Admin Trade Name Freq PRN Reason Stop Dose Admin Acetaminophen 650 mg 08/21/21 22:55 08/24/21 00:58 Acetaminophen 325 Mg Tablet PO 650 mg Q4H PRN Administration Mild Pain (1-3) or Fever Hydrocodone Bitart/Acetaminophen 1 tab 08/21/21 22:55 Hydrocodone/Acetaminophen (*Crx) 5-325 Mg Tablet PO Q4H PRN Pain Rated 4-6 Piperacillin/Tazobactam/Dextrose 3.375 gm in 50 mls
[2021-08-25 09:02] LABS: Hematocrit 41.4 % (42.0-52.0); Hemoglobin 14.2 g/dL (14.0-18.0); Mean Corpuscular HGB Conc 34.3 g/dl (32-36); Mean Corpuscular Hemoglobin 30.2 pg (26-34); Mean Corpuscular Volume 88.1 fl (80-100); Mean Platelet Volume 10.7 fl (7.4-10.4); Platelet Count Result 222 k/mm3 (150-375); Red Cell Distribution Width 11.9 % (11.5-14.5)
[2021-08-25 09:24] LABS: INR 1.2; Prothrombin Time 14.4 Seconds (11.1-14.7)
--- NOTE | 2021-08-25 12:15 | PM.IMPN ---
Progress Note: A&P Assessment and Plan (1) Aspiration pneumonia: Qualifiers: Aspiration pneumonia type: due to vomit Laterality: bilateral Lung location: unspecified part of lung Qualified Code(s): J69.0 - Pneumonitis due to inhalation of food and vomit Code(s): J69.0 - Pneumonitis due to inhalation of food and vomit Status: Acute (2) Sepsis with acute hypoxic respiratory failure: Qualifiers: Sepsis type: sepsis due to unspecified organism Severe sepsis shock status: without septic shock Qualified Code(s): A41.9 - Sepsis, unspecified organism; R65.20 - Severe sepsis without septic shock; J96.01 - Acute respiratory failure with hypoxia Code(s): A41.9 - Sepsis, unspecified organism; R65.20 - Severe sepsis without septic shock; J96.01 - Acute respiratory failure with hypoxia Status: Acute (3) Pneumomediastinum: Code(s): J98.2 - Interstitial emphysema Status: Acute (4) CORY (acute kidney injury): Code(s): N17.9 - Acute kidney failure, unspecified Status: Acute (5) Ingestion of unknown drug: Code(s): T50.901A - Poisoning by unspecified drugs, medicaments and biological substances, accidental (unintentional), initial encounter Status: Acute Additional Plan Patient has sepsis due to aspiration pneumonia resulting in acute hypoxic respiratory failure and acute kidney injury. Patient been placed on empiric antibiotic therapy with vancomycin and Zosyn. Blood cultures have been obtained and are pending. The patient received 2 L in isotonic fluid resuscitation and has been placed on maintenance fluids at 125 mL an hour. Will continue to monitor urine output and repeat electrolyte panel in a.m.. Patient also has some transaminitis again likely secondary to acute sepsis. Patient does have some pneumomediastinum likely due to coughing. Will repeat chest x-ray in a.m. to monitor. The patient can stand and ambulate for DVT prophylaxis. Will not provide pharmacologic DVT prophylaxis due to report of hematemesis versus hemoptysis. Patient has been admitted as inpatient status and will require greater than 2 midnight stay for stabilization of severe sepsis with end-organ injury. 08/22/21 Cr improving 2.00-> 1.40 (GFR > 60 today) AST/ALT normalized utox w marijuana unclear what pills pt consumed prior to aspiration event cont vanc zosyn cont IVFs will slow rate to 100cc /hr monitor pneumomediastinum crisis eval prior to dc 08/23/2021 Slow improvement continue current care 08/24/2021 CXr ordered for samir AM Pulmology consult ordered Continue current iv abx Wcc improving , bc full report awaiting. Rpt BMp and INR PT can stop fluids creat is better 08/25/2021 Patient is clinically much better. Chest x-ray also shows mild improvement. Will plan is continue current plan of care and treatment. Is stays okay will discharge in the morning. Subjective Date/time seen: 08/25/21 12:15 Interval history: 08/25/2021 Patient was seen during the morning rounds today. Feeling much better. Decreased shortness of breath, no chest pain. Abdominal pain, nausea, vomiting. Mood stable. Review of Systems Review of Systems: All systems reviewed & are unremarkable except as noted in HPI and below Exam Narrative: General: No acute distress, well-developed well-nourished HEENT: Mucous membranes are moist, EOMI, both ears pierced Respiratory: BL decreased BS Cardiovascular: S1S2 Gastrointestinal: Soft, nontender, nondistended Skin: No jaundice, positive pallor, normal cap refill Musculoskeletal: No clubbing, cyanosis or edema Neurological: Alert and oriented, speech is clear, no facial asymmetry, no focal neuro deficits Psychiatric: h/o of depression Objective Data Vital Signs Vital Signs: Vital Signs - 24 hr 08/24/21 15:50 08/24/21 16:55 08/24/21 16:56 Temperature Pulse Rate Respiratory Rate Blood Pressure
--- NOTE | 2021-08-25 12:32 | PC.NURSE ---
On 08/25/21, the student, [Julianne Duenas ], provided care and completed [facility] documentation on this patient. I have reviewed the student's documentation and agree with the findings.
[2021-08-25 14:00] VITALS: BP 133/69; PULSE 83; RESP 20; TEMP 36.5; O2SAT 99
[2021-08-25 18:19] VITALS: O2SAT 98
[2021-08-25 20:58] LABS: Vancomycin Trough 7.1 ug/mL (10.0-20.0)
[2021-08-25 22:00] VITALS: BP 122/70; PULSE 56; RESP 16; TEMP 36.6; O2SAT 96
[2021-08-26 05:34] VITALS: BP 102/57; PULSE 56; RESP 16; TEMP 36.4; O2SAT 97
[2021-08-26 08:00] VITALS: PULSE 56; RESP 16; O2SAT 97
--- NOTE | 2021-08-26 09:15 | PM.PNPUL ---
Progress Note: A&P Assessment and Plan (1) Sepsis with acute hypoxic respiratory failure: Qualifiers: Sepsis type: sepsis due to unspecified organism Severe sepsis shock status: without septic shock Qualified Code(s): A41.9 - Sepsis, unspecified organism; R65.20 - Severe sepsis without septic shock; J96.01 - Acute respiratory failure with hypoxia Code(s): A41.9 - Sepsis, unspecified organism; R65.20 - Severe sepsis without septic shock; J96.01 - Acute respiratory failure with hypoxia Status: Acute (2) Aspiration pneumonia: Qualifiers: Aspiration pneumonia type: due to vomit Laterality: bilateral Lung location: unspecified part of lung Qualified Code(s): J69.0 - Pneumonitis due to inhalation of food and vomit Code(s): J69.0 - Pneumonitis due to inhalation of food and vomit Status: Acute Assessment and Plan: respiratory status has improved. Patient no longer has hemoptysis. No cough, no fever. Currently off oxygen, breathing ambient air. Had somewhat decreased breath sounds and dullness to percussion in right base. Will get a good PA and lateral x-ray and if no pleural effusion will DC home. Would suggest Augmentin 500/125 BID for 7 days. need to evaluate in the pulmonary clinic in about three weeks. (3) Pneumomediastinum: Code(s): J98.2 - Interstitial emphysema Status: Acute (4) Ingestion of unknown drug: Code(s): T50.901A - Poisoning by unspecified drugs, medicaments and biological substances, accidental (unintentional), initial encounter Status: Acute Subjective Date/time seen: 08/26/21 09:15 Patient doing better. He has no fever chills cough or hemoptysis. Currently on room air. Willing to go home Review of Systems Review of Systems: All systems reviewed & are unremarkable except as noted in HPI and below Exam Narrative: GENERAL APPEARANCE: Well developed, well nourished, alert and cooperative, and appears to be in no acute distress while on supplemental oxygen SKIN: Inspection of the skin reveals no rashes, ulcerations or petechiae. HEENT: Sclerae anicteric and conjunctivae pink and moist. Extraocular movements were intact and pupils were equal, round, and reactive to light. The oral mucosa, hard and soft palate, tongue and posterior pharynx were normal. NECK: Supple. There was no thyroid enlargement, and no tenderness, or masses were felt. CHEST: Normal AP diameter and normal contour without any kyphoscoliosis. LUNGS: somewhat decreased breath sounds right base posteriorly, no wheezing left lung clear. CARDIAC: There was a regular rate and rhythm without any murmurs, gallops, rubs. ABDOMEN: Soft and nontender with normal bowel sounds. There was no organomegaly. LYMPH NODES: No lymphadenopathy was appreciated in the neck. EXTREMITIES: No cyanosis, clubbing or edema. NEUROLOGIC: Alert and oriented x 3. Normal affect. Objective Data Vital Signs Vital Signs: Vital Signs - 24 hr 08/25/21 14:00 08/25/21 18:19 08/25/21 22:00 Temperature 36.5 C 36.6 C Pulse Rate 83 56 L Respiratory Rate 20 16 Blood Pressure 133/69 122/70 Pulse Oximetry 99 98 96 08/26/21 05:34 Temperature 36.4 C Pulse Rate 56 L Respiratory Rate 16 Blood Pressure 102/57 L Pulse Oximetry 97 Intake/Output Intake/Output: Intake & Output 08/23/21 08/24/21 08/25/21 08/26/21 23:59 23:59 23:59 23:59 Intake Total 4555 2400 2340 400 Output Total 1550 1200 500 400 Balance 3005 1200 1840 0 Meds/Results Medications: Active Medications Generic Name Dose Route Start Last Admin Trade Name Freq PRN Reason Stop Dose Admin Acetaminophen 650 mg 08/21/21 22:55 08/24/21 00:58 Acetaminophen 325 Mg Tablet PO 650 mg Q4H PRN Administration Mild Pain (1-3) or Fever Hydrocodone Bitart/Acetaminophen 1 tab 08/21/21 22:55 Hydrocodone/Acetaminophen (*Crx) 5-325 Mg Tablet PO Q4H PRN Pain Rated 4-6 Heparin Sodium (Porcine) 5,00
--- NOTE | 2021-08-26 12:26 | PM.DS ---
DS: Admitting Diagnosis Discharge Date 08/26/2021 Admitting Diagnosis Aspiration pneumonia DS: Discharge Diagnosis Discharge Diagnosis (1) Aspiration pneumonia: Qualifiers: Aspiration pneumonia type: due to vomit Laterality: bilateral Lung location: unspecified part of lung Qualified Code(s): J69.0 - Pneumonitis due to inhalation of food and vomit Code(s): J69.0 - Pneumonitis due to inhalation of food and vomit Status: Acute (2) Sepsis with acute hypoxic respiratory failure: Qualifiers: Sepsis type: sepsis due to unspecified organism Severe sepsis shock status: without septic shock Qualified Code(s): A41.9 - Sepsis, unspecified organism; R65.20 - Severe sepsis without septic shock; J96.01 - Acute respiratory failure with hypoxia Code(s): A41.9 - Sepsis, unspecified organism; R65.20 - Severe sepsis without septic shock; J96.01 - Acute respiratory failure with hypoxia Status: Acute (3) Pneumomediastinum: Code(s): J98.2 - Interstitial emphysema Status: Acute (4) CORY (acute kidney injury): Code(s): N17.9 - Acute kidney failure, unspecified Status: Acute (5) Ingestion of unknown drug: Code(s): T50.901A - Poisoning by unspecified drugs, medicaments and biological substances, accidental (unintentional), initial encounter Status: Acute DS: Summary Hospital Course Reason for hospitalization: Pneumonia Hospital Course: 25 old male was admitted complained of having shortness of breath, patient chest x-ray shows patient has pneumonia. Patient was given IV antibiotics and culture were done. No complication is stay in the hospital. Today patient is feeling better, patient discharged home in stable condition. Status at Discharge Cognitive/behavioral status at discharge: Stable Functional status at discharge: independent ambulation Overall status at discharge: patient is back to baseline Time Spent with Patient Time attestation: Total time spent providing and/or coordinating discharge services: Time spent: Less than 30 minutes Exam Narrative: General: No acute distress, well-developed well-nourished HEENT: Mucous membranes are moist, EOMI, both ears pierced Respiratory: BL decreased BS Cardiovascular: S1S2 Gastrointestinal: Soft, nontender, nondistended Skin: No jaundice, positive pallor, normal cap refill Musculoskeletal: No clubbing, cyanosis or edema Neurological: Alert and oriented, speech is clear, no facial asymmetry, no focal neuro deficits Psychiatric: h/o of depression DS: Data Data Completed and Pending Labs on day of discharge: Labs from last 24 hours 08/25/21 20:24 Vancomycin Trough 7.1 L Preliminary micro results at discharge 08/21/21 20:55 Blood Culture - Preliminary Blood 08/21/21 20:55 Blood Culture - Preliminary Blood Discharge Plan Discharge Attending physician on discharge: Ced Downs Consulting providers: Noel Clay Discharging Clinician: Ced Downs Patient Disposition: Home, Self-Care Activity: as tolerated Diet: as tolerated Patient Instructions: Antibiotic Form, How to Stop Smoking (DC) Stand Alone Forms: General Discharge Information Follow-up/Referrals: Isai Sommer MD [Primary Care Provider] - Discharge Medications: New levofloxacin 500 mg tablet 500 mg PO DAILY Qty: 7 RF: 0 No Action No Home Medications RF: 0 Date of admission: 08/21/21 22:56 Primary Care Provider: Isai Sommer Admitting Provider: Denise Roblero Attending physician on admission: Denise Roblero Condition: Stable Quality VTE Prophylaxis VTE prophylaxis: mechanical ordered
== END 2021-08-26 13:20 | disposition home or self-care (01) | DRG 871 ==
LOC: ANHED 23:00 → ANHIMU 23:18 → ANH3MEDSUR 08-26 12:26 → ANHIMU 08-29 14:16
PROVIDERS: Family Medicine; Hospitalist; Admitting Provider Internal Medicine; Emergency Provider Emergency Medicine; PCP Emergency Medicine; Visit Provider Internal Medicine
DX: A41.9 Sepsis, unspecified organism (principal); J96.01 Acute respiratory failure with hypoxia; J69.0 Pneumonitis due to inhalation of food and vomit; J18.9 Pneumonia, unspecified organism; N17.9 Acute kidney failure, unspecified; R65.20 Severe sepsis without septic shock; J98.2 Interstitial emphysema; Z20.822 Contact with and (suspected) exposure to COVID-19; T50.901A Poisoning by unspecified drugs, medicaments and biological substances, accidental (unintentional), initial encounter; F17.290 Nicotine dependence, other tobacco product, uncomplicated; Z90.49 Acquired absence of other specified parts of digestive tract
CPT/HCPCS: 36415; 36600; 70450; 71045; 71046; 71275; 80048; 80053; 80202; 80307; 81003; 82375; 82805; 83050; 85025; 85027; 85610; 85730; 87040; 93005; 96365; 99285; A9270; C9803; J2543; J3370; J7030; Q9967; U0003; U0005

== ENCOUNTER → 2021-09-02 13:19 | Outpatient (CLI) | payer BC, SELFPAY ==
--- NOTE | ~2021-09-02 | XR_ITS ---
EXAMINATION: XR chest 2V 09/02/2021 13:45 INDICATION: Follow-up pneumonia PROCEDURE: 2 view chest COMPARISON: Comparison to multiple prior studies sequentially, with oldest reviewed study dated 08/22. FINDINGS: The lungs are clear. The cardiomediastinal silhouette is within normal limits. There are no pleural effusions. There is no pneumothorax suspected. IMPRESSION: 1: NO ACUTE CARDIOPULMONARY DISEASE. Reviewed, dictated and finalized at location B. [facility] OPERATOR
== END ==
PROVIDERS: PCP Emergency Medicine; Visit Provider Emergency Medicine
DX: J18.9 Pneumonia, unspecified organism (principal)
CPT/HCPCS: 71046

== ENCOUNTER 2021-11-01 03:36 | Emergency (ER) | payer MEDICAID, SELFPAY ==
--- NOTE | ~2021-11-01 | XR_ITS ---
EXAMINATION: XR chest 1V portable DATE: 11/01/2021 04:12 INDICATION: Overdose. TECHNIQUE: A single frontal view of the chest was obtained. COMPARISON: Chest 2 views 09/02/2021, chest CT 08/21/2021 FINDINGS: The chest demonstrates clear lungs without pneumonia, pleural effusion, or pneumothorax. Th e heart size is normal. IMPRESSION: 1. No acute cardiopulmonary disease. Reviewed, dictated and finalized at location A.
[2021-11-01 03:36] VITALS: PULSE 63; RESP 20; TEMP 36.2; O2SAT 100
--- NOTE | 2021-11-01 03:40 | ED.OVERDOSE ---
HPI - Overdose General Chief Complaint: Overdose <Marifer Foster Ruffin III, DO - Last Filed: 11/01/21 19:08> Stated Complaint: OD <Marifer Foster Ruffin III, DO - Last Filed: 11/01/21 19:08> Time Seen by Provider: 11/01/21 03:37 <Marifer Foster Ruffin III, DO - Last Filed: 11/01/21 19:08> Source: patient and EMS <Marifer Foster Ruffin III, DO - Last Filed: 11/01/21 19:08> Mode of arrival: EMS <Marifer Foster Ruffin III, DO - Last Filed: 11/01/21 19:08> Limitations: no limitations <Marifer Foster Ruffin III, DO - Last Filed: 11/01/21 19:08> History of Present Illness HPI Narrative: Pt drank a bunch of alcohol and snorted percocet. Pt found on floor of bedroom unresponsive. PD administered 8 mg Narcan intranasal and EMS started IV and gave 1 mg Narcan. Bagged patient for 10 minutes and he came around and is now alert and in no distress. <Marifer Foster Ruffin III, DO - Last Filed: 11/01/21 19:08> MD complaint: accidental overdose <Marifer Foster Ruffin III, DO - Last Filed: 11/01/21 19:08> Context: Accidental Overdose: wanted to get high <Marifer Foster Ruffin III, DO - Last Filed: 11/01/21 19:08> Treatments Prior to Arrival: narcan <Marifer Foster Ruffin III, DO - Last Filed: 11/01/21 19:08> Related Data Allergies/Adverse Reactions: Allergies Allergy/AdvReac Type Severity Reaction Status Date / Time No Known Allergies Allergy Verified 11/01/21 03:43 <Marifer Foster Ruffin III, DO - Last Filed: 11/01/21 19:08> Review of Systems Review of Systems: All systems reviewed & are unremarkable except as noted in HPI and below <Marifer Foster Ruffin III, DO - Last Filed: 11/01/21 19:08> PMFSH Past Medical History Medical History: Medical History (Updated 11/01/21 @ 06:25 by Marifer Ruffin III, DO) Healthy adult male <Marifer Foster Ruffin III, DO - Last Filed: 11/01/21 19:08> Surgical History Surgical History: Surgical History (Updated 08/22/21 @ 03:08 by Denise Roblero DO) History of appendectomy History of left inguinal hernia repair At age 10 <Marifer Foster Ruffin III, DO - Last Filed: 11/01/21 19:08> Family History Family History: Family History Other No significant family history <Marifer Foster Ruffin III, DO - Last Filed: 11/01/21 19:08> Social History Social History: Social History (Updated 08/22/21 @ 03:11 by Denise Roblero DO) Social History: Patient is single and lives with his parents. He works at [employer] in the [employer] department. He drinks alcohol on occasion in in moderation about once a month. He smokes 3 joints a day. He has been smoking E cigarettes for 3 years. Tobacco type: e-cigarettes/vaping Additional smoking assessment comments: He has been vaping since 2019 Alcohol intake: current Drinks per week: 1 Substance use: current Substance use type: marijuana and prescription drug Spiritual care concerns: No <Marifer Foster Ruffin III, DO - Last Filed: 11/01/21 19:08> Exam Const: General: no acute distress <Marfier Foster Ruffin III, DO - Last Filed: 11/01/21 19:08> Orientation/consciousness: patient oriented x3 <Marifer Foster Ruffin III, DO - Last Filed: 11/01/21 19:08> HENMT: Head: normal to inspection <Marifer Foster Ruffin III, DO - Last Filed: 11/01/21 19:08> Eyes: Conjunctivae: conjunctivae normal <Marifer Foster Ruffin III, DO - Last Filed: 11/01/21 19:08> Pupils: Equal, round and reactive pupils present <Marifer Foster Ruffin III, DO - Last Filed: 11/01/21 19:08> Chest: Chest palpation & inspection: normal inspection of the chest <Marifer Foster Ruffin III, DO - Last Filed: 11/01/21 19:08> Resp: Effort & Inspection: normal respiratory effort <Marifer Foster Ruffin III, DO - Last Filed: 11/01/21 19:08> Auscultation: clear to auscultation bilaterally <Marifer Foster Ruffin III, DO - Last Filed: 11/01/21 19:08> Cardio: Rate: regular rate <Marifermaria elena Hutchison Ruffin I
[2021-11-01 03:49] VITALS: BP 112/76; PULSE 67; RESP 16; O2SAT 100
[2021-11-01 03:49] LABS: Basophils Percent Auto 0.3 % (0.2-1.2); Eosinophils Percent Auto 0.3 % (0-4.4); Hematocrit 43.4 % (42.0-52.0); Hemoglobin 14.8 g/dL (14.0-18.0); Immature Granulocyte Absolute 0.02 K/mm3 (0.00-0.031); Immature Granulocyte Percent A 0.3 % (0-0.5); Lymphocytes Absolute Auto 2.28 K/mm3 (0.9-3.2); Lymphocytes Percent Auto 34.3 % (18.3-44.2); Mean Corpuscular HGB Conc 34.1 g/dl (32-36); Mean Corpuscular Volume 90.8 fl (80-100); Monocytes Absolute Auto 0.6 K/mm3 (0.1-0.6); Monocytes Percent Auto 8.4 % (2.6-8.5); Neutrophils Absolute Auto 3.8 K/mm3 (1.3-6.7); Neutrophils Percent Auto 56.4 % (45.5-73.1); Platelet Count Result 205 k/mm3 (150-375); Red Blood Count 4.78 M/mm3 (4.6-6.20); White Blood Count 6.7 K/mm3 (4.5-10.0)
[2021-11-01 03:50] VITALS: RESP 18
[2021-11-01 03:59] LABS: Acetaminophen < 10 ug/mL (10-30); Ethanol 146 mg/dL (<10); Salicylate < 1.0 mg/dL (2-20)
--- NOTE | 2021-11-01 04:06 | PC.NURSE ---
Addendum entered by Kai Person RN 11/01/21 05:21: Personal belonging were removed and locked away. Patient placed in green scrubs. Family at bedside. BP Cuff, SpO2 cable and cardiac leads kept on patient for monitoring. No sitter required. Awaiting ETOH level to decrease before reassessing [place] screening. Original Note: Mother and Ex-GF arrived to bedside. Family seen express concern to patient, tearful. As per ex-gf, they just started talking 3-4 days ago. They were on a date at a bar drinking and they got into a minor argument. Patient threatened to go home and shoot himself with a gun. Ex-gf called patients mom to go check on him. Patient intentionally OD on fentanyl and percocet in order to be numb . Patient appears stable at this time. EDP Ruffin and centrifugal screen tender Lisa made aware. Suicidal precautions initiated.
[2021-11-01 04:07] LABS: Alanine Aminotransferase 15 U/L (4-50); Albumin Level 4.6 g/dL (3.5-5.1); Alkaline Phosphatase 65 U/L (38-126); Anion Gap 13 mmol/L (8-16); Aspartate Amino Transferase 26 U/L (17-59); Bilirubin,Total 0.5 mg/dL (0.2-1.3); Blood Urea Nitrogen 16 mg/dL (9-20); Calcium 8.8 mg/dL (8.4-10.2); Carbon Dioxide 23 mmol/L (22-30); Chloride 106 mmol/L (98-107); Estimated CRCL calculation 79 ml/min; Estimated Glomerular Filt Rate > 60; Glucose 179 mg/dL (65-110); Potassium 4.2 mmol/L (3.4-5.0); Sodium 142 mmol/L (137-145)
[2021-11-01 05:37] VITALS: BP 101/90; PULSE 54; RESP 12; O2SAT 98
[2021-11-01 07:13] VITALS: BP 107/65; PULSE 59; RESP 18; O2SAT 98
[2021-11-01 07:19] LABS: Add Urine Microscopic? NO; Appearance Urine Clear (Clear); Bilirubin Urine Negative (Negative); Blood Urine Negative (Negative); Color Urine Yellow (Yellow); Glucose Urine UA Negative (Negative); Ketones Urine Negative (Negative); Leukocyte Esterase Ur Negative LEU/UL (Negative); Nitrate Urine Negative (Negative); Protein Urine Negative (Negative); Specific Grav Ur 1.011 (1.001-1.035); Urobilinogen Urine Negative mg/dL (<2.0)
[2021-11-01 07:23] LABS: Ethanol 88 mg/dL (<10)
--- NOTE | 2021-11-01 07:31 | PC.NURSE ---
Patient mother at bedside along with girlfriend. PT denies SI and HI.
[2021-11-01 07:45] LABS: Amphetamine Screen Urine Negative (Negative); Barbiturate Screen Urine Negative (Negative); Benzodiazepines Screen Urine Negative (Negative); Cannabinoid Screen Urine Positive (Negative); Cocaine Screen Urine Negative (Negative); Methadone Screen Urine Negative (Negative); Opiate Screen Urine Negative (Negative); Phencyclidine Screen Urine Negative (Negative)
== END 2021-11-01 13:57 | disposition home or self-care (01) ==
PROVIDERS: Emergency Medicine; Emergency Provider Emergency Medicine; PCP Emergency Medicine
DX: R45.851 Suicidal ideations (principal); T50.901A Poisoning by unspecified drugs, medicaments and biological substances, accidental (unintentional), initial encounter; F17.290 Nicotine dependence, other tobacco product, uncomplicated; Z90.89 Acquired absence of other organs
CPT/HCPCS: 36415; 71045; 80053; 80307; 81003; 84443; 85025; 99284

== ENCOUNTER 2023-04-05 15:17 | Emergency (ER) | payer OTHER, BC, SELFPAY ==
[2023-04-05 15:23] VITALS: BP 116/83; PULSE 67; RESP 16; TEMP 36.8; O2SAT 100
--- NOTE | 2023-04-05 16:47 | ED.ANIMALBIT ---
HPI - Animal Bite General Chief Complaint: Animal Bite Stated Complaint: dog bite animal bite Time Seen by Provider: 04/05/23 16:40 History of Present Illness HPI narrative: Patient is a 27-year-old healthy male here with a dog bite. 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 Patient notes that it did bleed initially and he applied peroxide and fluids to it. 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 He did return to ask if the patient was vaccinated, they noted that it was a family member's dog and were unsure. He denies any discharge from the wounds, and notes they have been healing well without a smell. He notes some residual pain throughout the chest wall on the right side. Related Data Allergies Allergy/AdvReac Type Severity Reaction Status Date / Time No Known Allergies Allergy Verified 04/05/23 15:32 Review of Systems Review of Systems: CONSTITUTIONAL: Denies fever, chills, or sweats. CARDIOVASCULAR: Right chest wall pain. Denies palpitations, or edema. RESPIRATORY: Denies cough or dyspnea. GASTROINTESTINAL: Denies abdominal pain, nausea, vomiting, or diarrhea. GENITOURINARY: Denies dysuria or hematuria. SKIN: Wound to right chest. MUSCULOSKELETAL: Denies back pain, joint pain, or myalgia. NEUROLOGIC: Denies headache, numbness, or weakness. [facility] Past Medical History Medical History (Updated 04/05/23 @ 16:51 by Caroline Whitlock MD) Healthy adult male Surgical History Surgical History (Updated 08/22/21 @ 03:08 by Denise Roblero DO) History of appendectomy History of left inguinal hernia repair At age 10 Family History Family History Other No significant family history Social History Social History (Updated 08/22/21 @ 03:11 by Denise Roblero DO) Social History: Patient is single and lives with his parents. He works at [employer] in the [employer] department. He drinks alcohol on occasion in in moderation about once a month. He smokes 3 joints a day. He has been smoking E cigarettes for 3 years. Tobacco type: e-cigarettes/vaping Additional smoking assessment comments: He has been vaping since 2019 Alcohol intake: current Drinks per week: 1 Substance use: current Substance use type: marijuana and prescription drug Spiritual care concerns: No Exam Narrative: GENERAL: Well-appearing, well-nourished, and in no acute distress. HEAD: Normocephalic, atraumatic. EYES: PERRLA and EOMI. ENT: Nares clear. NECK: Supple. CHEST: Unlabored respirations HEART: Regular rate and rhythm. ABDOMEN: Soft, nontender, nondistended. EXTREMITIES: Normal range of motion. SKIN: Warm, dry, no rash. 3 3mm healing lacerations to the right pectoral region. No surrounding erythema. No drainage. NEURO: No focal deficits. Alert and oriented x3. Course Course Emergency Course: Chart review performed, here with dog bite, normal vitals in triage. Patient seen evaluated, chest wall appears to have some dog bite with routine healing and no concern of acute infection. Unsure of last tetanus, will update this. I did discuss risks and benefits of rabies vaccine. It is a domestic animal so risk is very low. At this time he would like to forego the rabies vaccination series. The results of pertinent diagnostic studies and exam findings were discussed. The patient?s provisional diagnosis and plan of care were discussed with the patient and present family. The patient and/or present family expressed understanding of the diagnosis and plan. The nurse was instructed to provide written instructions and appropriate follow-up information. The patient understands their need and responsibility to obtain additional follow-up as instructed. The risks of medications administered and prescribed were discussed wit
[2023-04-05] MEDS: TETANUS,DIPHTHERIA,AC PERTUSSIS ADULT (0.5 ML) BOOSTRIX IM (17:00)
== END 2023-04-05 17:04 | disposition home or self-care (01) ==
PROVIDERS: Emergency Provider Student in an Organized Health Care Education/Training Program
DX: S21.151A Open bite of right front wall of thorax without penetration into thoracic cavity, initial encounter (principal); Z23 Encounter for immunization; F17.290 Nicotine dependence, other tobacco product, uncomplicated; W54.0XXA Bitten by dog, initial encounter
CPT/HCPCS: 90471; 90715; 99283